=== PATIENT | female | born 1980 | race Caucasian/White ===

== ENCOUNTER 2022-04-29 20:20 | Emergency (ER) | payer OTHER ==
[~2022-04-29] VITALS: Ht 167.6 cm; Wt 58.1 kg
--- NOTE | 2022-04-29 20:45 | NUR ---
pt [id number] and c/o taking took phentermine x 5 days, paranoid and hallucinating, req psych eval. pt noted with -si/hi. rr even and unlabored no sob noted. pt to ER bed 15. NAD. pt connected to cardiac and pox monitors. will continue to monitor.
--- NOTE | 2022-04-29 20:57 | NUR ---
pt refusing EKG. FRANCISCO JONES made aware
[2022-04-29 21:11] LABS: BASOPHILS # (AUTO) 0.1 K/uL (0.0-0.2); BASOPHILS % (AUTO) 0.8 % (0.0-2.0); EOSINOPHILS % (AUTO) 0.6 % (0.0-6.0); HEMATOCRIT 40 % (33-45); HEMOGLOBIN 12.9 g/dL (11.5-14.8); LYMPHOCYTES # (AUTO) 2.6 K/uL (0.8-4.8); LYMPHOCYTES % (AUTO) 32.6 % (20.0-44.0); MEAN CORPUSCULAR HGB CONC 32 g/dl (31.0-36.0); MEAN CORPUSCULAR VOLUME 83 fL (82-100); MONOCYTES # (AUTO) 0.7 K/uL (0.1-1.30); MONOCYTES % (AUTO) 8.7 % (2.0-12.0); NEUTROPHILS # (AUTO) 4.5 K/uL (1.8-8.9); NEUTROPHILS % (AUTO) 57.3 % (43.0-81.0); PLATELET COUNT (AUTO) 250 K/uL (150-450); RED BLOOD CELL COUNT(AUTO) 4.83 MIL/uL (4.0-5.2); WHITE BLOOD COUNT (AUTO) 7.9 K/uL (4.3-11.0)
--- NOTE | 2022-04-29 21:12 | NUR ---
COVID ANTIGEN SWAB COLLECTED AND SENT TO LAB
[2022-04-29 21:28] LABS: ALANINE AMINOTRANSFERASE 23 U/L (12-78); ALKALINE PHOSPHATASE 51 U/L (46-116); ASPARTATE AMINOTRANSFERASE 24 U/L (15-37); BILIRUBIN,DIRECT 0.2 mg/dL (0.0-0.2); BILIRUBIN,TOTAL 0.5 mg/dL (0.2-1.0); CARBON DIOXIDE 24 mmol/L (21-32); CHLORIDE 104 mmol/L (98-107); CREATININE 0.7 mg/dL (0.6-1.3); GLUCOSE 144 mg/dL (74-106); POTASSIUM 3.5 mmol/L (3.5-5.1); SODIUM SERUM 138 mmol/L (136-145); TOTAL PROTEIN, SERUM 7.6 g/dL (6.4-8.2); UREA NITROGEN, BLOOD 6 mg/dL (7-18)
--- NOTE | 2022-04-29 21:28 | NUR ---
urine collected and sent to lab
[2022-04-29 21:32] LABS: THYROID STIMULATING HORMONE 0.236 uIU/mL (0.358-3.74)
[2022-04-29 21:35] LABS: ACETAMINOPHEN 0 ug/ml (10-30); ALCOHOL, BLOOD < 3 mg/dL (0-0)
[2022-04-29 21:52] LABS: BILIRUBIN,URINE NEGATIVE (NEGATIVE); COLOR,URINE DARK YELLOW (YELLOW); LEUKOCYTE ESTERASE ,URINE NEGATIVE (NEGATIVE); NITRITE, URINE NEGATIVE (NEGATIVE); PH,URINE 6.5 (5.0-8.0); PROTEIN,URINE NEGATIVE (NEGATIVE); UGLUCOSE NEGATIVE (NEGATIVE); UROBILINOGEN,URINE 0.2 EU/dL (0.2)
[2022-04-29 22:16] LABS: BACTERIA,URINE Few /HPF (None Seen); RBC,URINE 0-2 /HPF (0-2); SQUAMOUS EPITHELIAL CELL,UR Few /HPF (None Seen); WBC,URINE 0-2 /HPF (0-3)
[2022-04-29] MEDS ORDERED: LORAZEPAM 1 MG TABLET PO ONE (22:30)
[2022-04-29] MEDS ORDERED: LORAZEPAM 1 MG TABLET ONE (22:36)
--- NOTE | 2022-04-29 22:37 | NUR ---
PT TAKEN TO CT VIA [facility]
--- NOTE | 2022-04-29 22:40 | NUR ---
PT RETURNED TO ER BED [address]
[2022-04-29] MEDS ORDERED: LORA-259 PO (23:33)
--- NOTE | 2022-04-29 23:58 | NUR ---
Patient discharged to home in stable condition with . Written and verbal after care instructions given. Patient verbalizes understanding of instruction. pt ambulatory with a steady gait
[2022-04-30 00:36] VITALS: BP 138/88
== END 2022-04-30 00:37 | disposition home or self-care (01) ==
LOC: ER 20:22
DX: R45.1 Restlessness and agitation (principal); T50.5X5A Adverse effect of appetite depressants, initial encounter; R94.6 Abnormal results of thyroid function studies; F99 Mental disorder, not otherwise specified; R41.82 Altered mental status, unspecified; Z20.822 Contact with and (suspected) exposure to COVID-19; J45.909 Unspecified asthma, uncomplicated; Y92.89 Other specified places as the place of occurrence of the external cause
CPT/HCPCS: 99285; 93005; 70450; 85025; 80048; 80076; 84703; 81001; 36415; 84443; 87426; 80143; 80320; 80307; C9803; G0480

== ENCOUNTER 2022-06-27 16:13 | Emergency (ER) | payer OTHER ==
[~2022-06-27] VITALS: Ht 167.6 cm; Wt 54.4 kg
[~2022-06-27 16:13] MED LIST: LORA-259 PO
[2022-06-27 16:25] VITALS: BP 144/101
--- NOTE | 2022-06-27 16:29 | NUR ---
CAME IN WITH FOR VOLUNTARY PSYCH ADMISSION DUE TO PARANOIA.
--- NOTE | 2022-06-27 16:30 | NUR ---
URINE SAMPLE OBTAINED SENT TO LAB
--- NOTE | 2022-06-27 16:33 | NUR ---
COVID SWAB TAKEN SENT TO LAB
[2022-06-27 16:52] LABS: BASOPHILS # (AUTO) 0.1 K/uL (0.0-0.2); EOSINOPHILS % (AUTO) 4.5 % (0.0-6.0); HEMATOCRIT 40 % (33-45); HEMOGLOBIN 12.8 g/dL (11.5-14.8); LYMPHOCYTES # (AUTO) 1.7 K/uL (0.8-4.8); LYMPHOCYTES % (AUTO) 24.7 % (20.0-44.0); MEAN CORPUSCULAR HGB CONC 32 g/dl (31.0-36.0); MEAN CORPUSCULAR VOLUME 84 fL (82-100); MONOCYTES # (AUTO) 0.6 K/uL (0.1-1.30); MONOCYTES % (AUTO) 8.9 % (2.0-12.0); NEUTROPHILS # (AUTO) 4.3 K/uL (1.8-8.9); NEUTROPHILS % (AUTO) 60.9 % (43.0-81.0); PLATELET COUNT (AUTO) 262 K/uL (150-450); RED BLOOD CELL COUNT(AUTO) 4.79 MIL/uL (4.0-5.2)
[2022-06-27 16:58] LABS: CALCIUM, SERUM 9.6 mg/dL (8.5-10.1); CARBON DIOXIDE 27 mmol/L (21-32); CHLORIDE 104 mmol/L (98-107); CREATININE 0.7 mg/dL (0.6-1.3); GLUCOSE 102 mg/dL (74-106); POTASSIUM 4.2 mmol/L (3.5-5.1); SODIUM SERUM 140 mmol/L (136-145); UREA NITROGEN, BLOOD 7 mg/dL (7-18)
[2022-06-27 17:02] LABS: BILIRUBIN,URINE 1+ (NEGATIVE); COLOR,URINE YELLOW (YELLOW); LEUKOCYTE ESTERASE ,URINE NEGATIVE (NEGATIVE); NITRITE, URINE NEGATIVE (NEGATIVE); PH,URINE 5.5 (5.0-8.0); PROTEIN,URINE NEGATIVE (NEGATIVE); UGLUCOSE NEGATIVE (NEGATIVE); UROBILINOGEN,URINE 0.2 EU/dL (0.2)
[2022-06-27 17:03] LABS: ALANINE AMINOTRANSFERASE 19 U/L (12-78); ALBUMIN 4.1 g/dL (3.4-5.0); ALCOHOL, BLOOD < 3 mg/dL (0-0); ALKALINE PHOSPHATASE 55 U/L (46-116); ASPARTATE AMINOTRANSFERASE 12 U/L (15-37); BILIRUBIN,DIRECT 0.1 mg/dL (0.0-0.2); BILIRUBIN,TOTAL 0.5 mg/dL (0.2-1.0); TOTAL PROTEIN, SERUM 7.8 g/dL (6.4-8.2)
[2022-06-27 17:28] LABS: ACETAMINOPHEN < 10 ug/ml (10-30)
[2022-06-27] MEDS ORDERED: LORAZEPAM 1 MG TABLET PO ONE (17:30)
[2022-06-27] MEDS ORDERED: LORAZEPAM 1 MG TABLET ONE (17:35)
--- NOTE | 2022-06-27 18:22 | NUR ---
10 MINUTES ETA FOR TRASNPORTATION GOING TO UNIT 1 NUMBER FOR REPORT: [phone] [id number] UNDER THE CARE OF DR SHERIDAN
--- NOTE | 2022-06-27 18:31 | NUR ---
CALLED NUMBER TO ATTEMPT TO GIVE REPORT, PHONE KEPT RINGING
== END 2022-06-27 18:33 ==
LOC: ER 16:16
DX: F22 Delusional disorders (principal); F99 Mental disorder, not otherwise specified; J45.909 Unspecified asthma, uncomplicated; E03.9 Hypothyroidism, unspecified; Z20.822 Contact with and (suspected) exposure to COVID-19
CPT/HCPCS: 99285; 85025; 80048; 80076; 84703; 81003; 36415; 87426; 80143; 80320; 80307; C9803; G0480